=== PATIENT | male | born 1985 | race African-American/Black ===

== ENCOUNTER 2018-10-08 20:59 | Emergency (ER) | payer BC ==
[2018-10-08] MEDS ORDERED: Dexamethasone 10 MG/ML VIAL ONE (21:49)
== END 2018-10-08 21:46 | disposition home or self-care (01) ==
LOC: ERS 20:59
DX: J02.9 Acute pharyngitis, unspecified (principal)
CPT/HCPCS: 87081; 87430; 99282; J1100

== ENCOUNTER 2018-12-09 21:55 | Emergency (ER) | payer BC ==
[2018-12-09] MEDS ORDERED: Ibuprofen 800 MG TAB ONE (22:00)
[2018-12-09] MEDS ORDERED: Dexamethasone 4 mg/ml Vial ONE (22:05)
== END 2018-12-09 22:50 | disposition home or self-care (01) ==
LOC: ERS 21:55
DX: J03.90 Acute tonsillitis, unspecified (principal)
CPT/HCPCS: 87081; 87430; 99283; J1100

== ENCOUNTER 2021-10-25 09:51 | Day surgery (SDC) | payer BC ==
[2021-10-20 12:49] VITALS: BMI 25.8
[2021-10-25] MEDS ORDERED: Acetaminophen 500 MG TAB ONE (11:16)
[2021-10-25] MEDS ORDERED: Ketorolac Tromethamine 30 MG/ML VIAL ONE (11:16)
[2021-10-25] MEDS ORDERED: Lidocaine 1% w/Epinephrine 1:100K 20 ML VIAL ONE (13:55)
[2021-10-25] MEDS ORDERED: Bupivacaine 0.25% HCL 30 ML VIAL ONE (13:55)
[2021-10-25] MEDS ORDERED: Fentanyl 100 MCG/2 ML VIAL ONE (14:02)
[2021-10-25] MEDS ORDERED: ceFAZolin (BATCH) 2 GM/100 ML BAG ONE (14:05)
[2021-10-25] MEDS ORDERED: Lidocaine 1% PF 5 ML VIAL ONE (14:14)
[2021-10-25] MEDS ORDERED: Glycopyrrolate 0.2 MG/ML 5 ML SYRINGE ONE (14:14)
[2021-10-25] MEDS ORDERED: PROPOFOL 200 MG/20 ML VIAL ONE (14:14)
[2021-10-25] MEDS ORDERED: PHENYLEPHRINE-NS 100 MCG/ML 10 ML SYRINGE ONE (14:14)
[2021-10-25] MEDS ORDERED: Rocuronium Bromide 10 MG/ML (10ML VIAL) ONE (14:14)
[2021-10-25] MEDS ORDERED: Ondansetron PF 4 MG/2 ML Vial ONE (14:14)
[2021-10-25] MEDS ORDERED: Dexamethasone 20 MG/5 ML VIAL ONE (14:14)
== END 2021-10-25 17:05 | disposition home or self-care (01) ==
LOC: SDC 09:51
PROVIDERS: ATTEND Specialist
DX: D17.1 Benign lipomatous neoplasm of skin and subcutaneous tissue of trunk (principal); R22.0 Localized swelling, mass and lump, head
CPT/HCPCS: 88304; 88325; J0690; J1100; J1885; J2405; J2704; J3010; S0020

== ENCOUNTER 2021-12-27 18:04 | Emergency (ER) | payer BC ==
[2021-12-27 18:57] LABS: #Eosinphils 0.1 thou/uL (0.0-0.7); #Lymphocytes 2.6 thou/uL (1.20-3.40); #Monocytes 0.6 thou/uL (0.11-0.59); #Neutrophils 3.8 thou/uL (1.40-6.50); %Basophils 0.3 % (0.0-1.0); %Eosinophils 1.4 % (0.0-10.0); %Lymphocytes 35.9 % (21.0-51.0); %Monocytes 8.7 % (0.0-10.0); %Neutrophils 53.7 % (42.0-75.0); Hemoglobin 14.2 g/dL (14.0-18.0); Mean Corpuscular HGB CONC 32.8 g/dL (32.0-36.0); Mean Corpuscular Hemoglobin 28.5 pg (27.0-31.0); Mean Corpuscular Volume 86.9 fL (78.0-98.0); Mean Platelet Volume 7.4 fL (7.4-10.4); Platelet Count 257 thou/uL (130-400); RBC Distribution Width 12.5 % (11.5-14.5); Red Blood Cell (RBC) Count 4.98 mill/uL (4.70-6.10); White Blood Cell (WBC) Count 7.2 thou/uL (4.8-10.8)
[2021-12-27 19:20] LABS: ALT (SGPT) 28 U/L (8-55); AST (SGOT) 20 U/L (5-34); Albumin 4.2 g/dL (3.5-5.0); Alkaline Phosphatase 76 U/L (40-110); Anion Gap 10 mmol/L (10-20); BUN (Urea Nitrogen) 12 mg/dL (8.9-20.6); Bilirubin, Total 0.3 mg/dL (0.2-1.2); Calc. Creatinine Clearance 0 mL/min (70-130); Calcium 9.7 mg/dL (7.8-10.44); Carbon Dioxide 27 mmol/L (22-29); Chloride 102 mmol/L (98-107); Globulin 3.2 g/dL (2.4-3.5); Glucose 86 mg/dL (70-105); Lipase 21 U/L (8-78); Potassium 3.9 mmol/L (3.5-5.1); Protein, Total 7.4 g/dL (6.0-8.3); Sodium 135 mmol/L (136-145)
== END 2021-12-27 21:00 | disposition home or self-care (01) ==
LOC: ERS 18:04
DX: R07.89 Other chest pain (principal); M54.6 Pain in thoracic spine
CPT/HCPCS: 36415; 71045; 80053; 83690; 84484; 85025; 93005